=== PATIENT | female | born 1985 | race African-American/Black ===

== ENCOUNTER 2021-09-14 05:37 | Emergency (ER) | payer SELFPAY ==
[~2021-09-14] VITALS: Ht 160 cm; Wt 60.0 kg
[2021-09-14] MEDS ORDERED: ACET-1158 PO (08:48)
[2021-09-14] MEDS ORDERED: CEPH-509 PO (08:48)
[2021-09-14 10:11] VITALS: BP 116/82
== END 2021-09-14 10:28 | disposition home or self-care (01) ==
LOC: ER 05:37 → EDBD 05:37 → ER 10:18
DX: S51.812A Laceration without foreign body of left forearm, initial encounter (principal); F12.10 Cannabis abuse, uncomplicated; F15.10 Other stimulant abuse, uncomplicated; Y04.8XXA Assault by other bodily force, initial encounter; Y93.89 Activity, other specified; Y92.89 Other specified places as the place of occurrence of the external cause; Y99.8 Other external cause status
CPT/HCPCS: 12004